=== PATIENT | male | born 1975 | race Two or more races ===

== ENCOUNTER 2017-04-21 21:39 | Emergency (ER) | payer SELFPAY ==
[~2017-04-21] VITALS: Ht 175.3 cm; Wt 60.1 kg
[2017-04-21 21:41] VITALS: BP 108/77
== END 2017-04-21 23:58 | disposition home or self-care (01) ==
LOC: ED 23:52
DX: K52.9 Noninfective gastroenteritis and colitis, unspecified (principal); F17.200 Nicotine dependence, unspecified, uncomplicated
CPT/HCPCS: 99281

== ENCOUNTER 2017-04-22 23:43 | Emergency (ER) | payer SELFPAY ==
[~2017-04-22] VITALS: Ht 175.3 cm; Wt 65.5 kg
[2017-04-22 23:46] VITALS: BP 132/87
[2017-04-22] MEDS ORDERED: DIPHENHYDRAMINE 25 MG CAPSULE ONE (23:53)
[2017-04-23] MEDS ORDERED: DIPHENHYDRAMINE 25 MG CAPSULE PO ONE
== END 2017-04-22 23:57 | disposition home or self-care (01) ==
LOC: ED 23:51
DX: S50.861A Insect bite (nonvenomous) of right forearm, initial encounter (principal); S60.861A Insect bite (nonvenomous) of right wrist, initial encounter; S50.862A Insect bite (nonvenomous) of left forearm, initial encounter; S60.862A Insect bite (nonvenomous) of left wrist, initial encounter; W57.XXXA Bitten or stung by nonvenomous insect and other nonvenomous arthropods, initial encounter; Y93.89 Activity, other specified; Y92.098 Other place in other non-institutional residence as the place of occurrence of the external cause; Y99.8 Other external cause status
CPT/HCPCS: 99282; Q0163